=== PATIENT | male | born 1955 | race Caucasian/White ===

== ENCOUNTER → 2019-04-13 12:34 | Outpatient (CLI) | payer MEDICARE, BC ==
[~2019-04-13 12:34] MED LIST: ASPIRIN81 MG PO; GLUCOPHAGE500 MG PO; LOTREL 5/10 MG1 CAP PO; THEREMS-M1 TAB PO; ZOCOR20 MG PO
[2019-05-18 06:15] VITALS: BMI 30.7
== END | disposition home or self-care (01) ==
LOC: D.MRI 12:34
PROVIDERS: ATTEND Orthopaedic Surgery
DX: M25.562 Pain in left knee (principal)

== ENCOUNTER 2019-05-18 05:35 | Day surgery (SDC) | payer MEDICARE, BC ==
[2019-05-13 11:14] LABS: CALC OSMOLALITY 280 mosm/kg (275-300); CALCIUM 9.1 mg/dL (8.5-10.1); CARBON DIOXIDE 31.9 mmol/L (21.0-32.0); CHLORIDE - SERUM 103 mmol/L (98-107); GLUCOSE 142 mg/dL (74-106); POTASSIUM - SERUM 4.7 mmol/L (3.5-5.1); SODIUM 140 mmol/L (136-145); UREA NITROGEN 13 mg/dL (7-18); eGFR NON AFRICAN AMERICAN 79 mL/min (90-120)
[2019-05-13 11:37] LABS: LYMPHOCYTES 18.3 % (15-50); MCH 31.3 pg (26.0-34.0); MCHC 34.8 g/dL (31.0-37.0); MEAN PLATELET VOLUME 9.4 fL (7.4-10.4); NEUTROPHILS 73.2 % (40-80); PLATELET COUNT 171 10x3/uL (130-400); RBC 5.11 10x6/uL (4.20-6.10); RDW 12.4 % (11.5-14.5); WBC 7.7 10x3/uL (4.8-10.8)
[~2019-05-18] VITALS: Ht 180.3 cm; Wt 99.8 kg
[~2019-05-18 05:35] MED LIST changes: -ASPIRIN81 MG PO
[2019-05-18] MEDS ORDERED: ASPIRIN81 MG PO (06:12)
[2019-05-18 06:15] VITALS: BP 131/72; Ht 180.3 cm; Wt 99.8 kg
== END 2019-05-18 10:03 | disposition home or self-care (01) ==
LOC: D.OPS 05:35 → D.PAN 07:30 → D.OPS 07:30
PROVIDERS: ATTEND Orthopaedic Surgery
DX: S83.242A Other tear of medial meniscus, current injury, left knee, initial encounter (principal); S83.282A Other tear of lateral meniscus, current injury, left knee, initial encounter; X58.XXXA Exposure to other specified factors, initial encounter; M94.262 Chondromalacia, left knee; M65.862 Other synovitis and tenosynovitis, left lower leg